=== PATIENT | female | born 1970 | race African-American/Black ===

== ENCOUNTER 2016-08-02 17:44 | Emergency (ER) | payer SELFPAY ==
[~2016-08-02 17:44] MED LIST: Iopamidol 370 76% 100 ML VIAL ONE
[2016-08-02] MEDS ORDERED: Acetaminophen 325 MG TAB ONE (18:42)
[2016-08-02] MEDS ORDERED: Acetaminophen 500 MG TAB ONE (18:42)
[2016-08-02] MEDS ORDERED: Ondansetron HCl/PF 4 MG/2 ML Vial ONE (18:42)
[2016-08-02 18:55] LABS: Anion Gap 15 mmol/L (10-20); BUN (Urea Nitrogen) 10 mg/dL (7.0-18.7); Calc. Creatinine Clearance 0 mL/min (70-130); Calcium 9.6 mg/dL (7.8-10.44); Carbon Dioxide 25 mmol/L (22-29); Chloride 104 mmol/L (98-107); Estimated GFR-MDRD Greater than 90
[2016-08-02 19:08] LABS: Band 3 % (5-11); Hematocrit 39.4 % (36.0-47.0); Mean Platelet Volume 6.7 fL (7.4-10.4); Neutrophil 81 % (42-75); Red Blood Cell (RBC) Count 4.34 mill/uL (4.20-5.40); White Blood Cell (WBC) Count 12.2 thou/uL (4.8-10.8)
[2016-08-02] MEDS ORDERED: Sodium Chloride 0.9% 1,000 ML ONE (19:40)
[2016-08-02] MEDS ORDERED: Clindamycin 300 MG/2 ML VIAL ONE (19:40)
[2016-08-02] MEDS ORDERED: Sodium Chloride 0.9% 100 ML ONE (19:44)
[2016-08-02] MEDS ORDERED: methylPREDNISolone Acetate 40 mg/ml Vial ONE ×2 (20:06)
[2016-08-02] MEDS ORDERED: Lidocaine 1% w/Epinephrine 1:100K 20 ML VIAL ONE (20:06)
[2016-08-02] MEDS ORDERED: Dexamethasone 20 MG/5 ML VIAL ONE (20:13)
--- NOTE | 2016-08-02 21:12 | PICIS ---
[facility] EMERGENCY RECORD TRIAGE (WedAug 02, 2016 17:56 MCBE) TRIAGE NOTES: left ear and left side of throat started hurting last night. no drainage. took advil 2.5 hours ago. (WedAug 02, 2016 17:56 MCBE) PATIENT: NAME: Niki Feliciano, AGE: 45, GENDER: female, : [place] 1970, TIME OF GREET: WedAug 02, 2016 17:45, PREFERRED LANGUAGE: Turkmen, ETHNICITY: Not or , ECODE BILLING MAP: [facility], SSN: [id number], Zip Code: [address], KG WEIGHT: 95.25, PHONE: , , , PERSON ID: [id number], PCP: Kathe Fontana, /Yesenia. ([place] Aug 02, 2016 17:56 MCBE) COMPLAINT: HEADACHE,LT EARACHE,LT SIDE OF FACE & THROAT PAIN. ([place] Aug 02, 2016 17:56 MCBE) ADMISSION: URGENCY: 3 Urgent, ADMISSION SOURCE: Home, TRANSPORT: CAR, BED: WAIT. ([place] Aug 02, 2016 17:56 MCBE) ASSESSMENT: Assessment: throat is noted to be red. patient reports difficulty in swallowing due to pain. (17:59 MCBE) IMMUNIZATIONS: Flu vaccine not up to date, Tetanus immunization up to date, Pneumococcal vaccine not up to date. (17:59 MCBE) SIRS SCORING: Heart Rate 55-109 (0), Temp range 96.8-101.1 (0), respiratory rate 12-24 (0), Mental Status altered: no (0), Infection or Suspected Infection: No. (17:59 MCBE) TRIAGE SCREENING: Patient denies suicidal ideation, Patient denies presence of domestic violence. (17:59 MCBE) PROVIDERS: TRIAGE NURSE: Dina Sheldon. ([place] Aug 02, 2016 17:56 MCBE) VITAL SIGNS: BP 185/97, Pulse 86, Resp 18, Temp 100.3, (Oral), Pain 9, O2 Sat 100, on Room Air, Time 08/02/2016 17:57. (17:57 MCBE) PREVIOUS VISIT ALLERGIES: No Known Drug Allergies. (Karoline Aug 02, 2016 17:56 MCBE) No Known Drug Allergies. (17:59 MCBE) KNOWN ALLERGIES No Known Allergies (Unconfirmed) No Known Drug Allergies CURRENT MEDICATIONS (20:00 KASA) lisinopril-hydrochlorothiazide: TABLET : Strength - 20 mg-12.5 mg : ORAL Patient Dose: 1 tab(s) Oral once a day. VITAL SIGNS VITAL SIGNS: BP: 185/97, Pulse: 86, Resp: 18, Temp: 100.3 (Oral), Pain: 9, O2 sat: 100 on Room Air, Time: 08/02/2016 17:57. (17:57 MCBE) BP: 149/77, Pulse: 77, Resp: 18, O2 sat: 100 on Room Air, Time: 08/02/2016 20:00. (20:00 EPIE) BP: 149/70, Pulse: 83, Time: 08/02/2016 20:31. (20:31 KASA) BP: 159/79, Pulse: 65, Resp: 18, O2 sat: 100 on Room Air, Time: 08/02/2016 21:00. (21:00 KASA) BP: 157/82, Pulse: 78, Resp: 20, Temp: 99.5, Pain: 2, O2 sat: 100 on RA, &a-1R&a+25V*p+0X*d3811S*c152B*c15G*c2P*p-0X&a-25V&a+1RName: Niki Feliciano : F45 MedRec: [id number] AcctNum: [id number] Prepared: Karoline Aug 02, 2016 21:53 by Interface Page [address] [facility] EMERGENCY RECORD Time: 08/02/2016 21:34. (21:34 KASA) NURSING ASSESSMENT: ENT (17:59 MCBE) CONSTITUTIONAL: Complex assessment performed, Patient arrives ambulatory, Gait steady, History obtained from patient, Patient appears comfortable, Patient cooperative, Patient alert, Oriented to person, place and time, Skin warm, Skin dry, Skin normal in color, Mucous membranes pink, Mucous membranes moist, Patient is well-groomed. ENT: Ear assessment findings include ear normal to inspection, Nasal assessment findings include nose normal to inspection, Mouth and throat assessment findings include mouth inspection normal, Uvula, with redness, with mild swelling, Mucous membranes pink, and moist, Able to swallow, Speech normal, no associated fever. RESPIRATORY/CHEST: Breath sounds clear, Respiratory assessment findings include respiratory effort easy, Respirations regular, Conversing normally, Neck and chest exam findings include trachea midline, Chest expansion equal, Chest movement symmetrical, no signs of distress, no retractions noted. NURSING ASSESSMENT: FALL RISK (20:00 KASA) FALL RISK: Use of level of consciousness altering agents with mentation or cognitive changes (3), Change in blood pressure (1), Total score 4. NURSING PROCEDURE: BEDSIDE SIRS TESTING (20:01 KASA) SCORES: Heart Rate 55-109 (0), Temp range 96.8-101.1 (0), respiratory rate 12-24 (0), Mental Status altered: no (0). NURSING PROCEDURE: DISCHARGE NOTE (21:34 KASA) DISCHARGE: Patient discharged to home, ambulating without assistance, family driving, accompanied by other family member, Summary of Care printed/ provided, Discharge instructions given to patient, Simple or moderate discharge teaching performed, . Educated and provided handout regarding diagnosis of: Peritonsillar abscess Follow up with PCP as needed. FOllow up with Dr. Woodall in 2-3 days, (Wednesday in [place] -AM, or in PM)., Prescriptions given and instructions on side effects given, Name of prescription(s) given: Clindamycin, Tramadol. BELONGINGS: Belongings and valuables with patient upon arrival to the Emergency Department include:, Belongings and valuables with patient at time of discharge include:, Belongings remain with patient, Valuables remain with patient. VITAL SIGNS: BP: 157, / 82, Pulse: 78, Resp: 20, Temp: 99.5, Pain: 2, O2 sat: 100, on: RA. NURSING PROCEDURE: IV (18:30 MCBE) PATIENT IDENITIFIER: Patient actively involved in identification process, Patient's identity verified by patient stating name, &a-1R&a+25V*p+0X*g0996G*c152B*c15G*c2P*p-0X&a-25V&a+1RName: Niki Feliciano : F45 MedRec: [id number] AcctNum: [id number] Prepared: Karoline Aug 02, 2016 21:53 by Interface Page [address] [facility] EMERGENCY RECORD Patient's identity verified by patient stating date, Patient's identity verified by hospital ID bracelet. IV SITE 1: IV therapy indicated for hydration, IV therapy indicated for medication administration, IV established, to the left antecubital, using an 18 gauge catheter, in one attempt, IV site prepped with chloraprep, Saline lock established, Flushed with normal saline (mls): 10, Labs drawn at time of placement, labeled in the presence of the patient and sent to lab, Blood cultures drawn at time of placement, labeled in the presence of the patient and sent to lab. NURSING PROCEDURE: LAB DRAW (18:52 MCBE) PATIENT IDENTIFIER: Patient actively involved in identification process, Patient's identity verified by patient stating name, Patient's identity verified by patient stating date, Patient's identity verified by hospital ID bracelet. LAB DRAW: Initial lab draw performed, by venipuncture, from right hand, in two attempts, Blood cultures labeled in the presence of the patient and sent to lab. NOTES: Procedure done by [facility]. NURSING PROCEDURE: NURSE NOTES NURSES NOTES: Notes: Pt resting with eyes closed upon entering the room. Informed that discharge orders are written. Informed we can discharge as soon as her IV fluids are done running. Patient states her throat is feeling much better since the procedure. (21:14 KASA) Notes: On-call ENT Carlitos MONTENEGRO in with patient. Suction set up. Lido with Epi used to numb area. 18g needle used with 5 mL syringe to withdrawn pus from abscess. Pt tolerated well. No complaints at this time. informed patient of the need to follow up at his office on Wednesday. (20:41 KASA) NURSING PROCEDURE: TRANSPORT TO TESTS PATIENT IDENTIFIER: Patient actively involved in identification process, Patient's identity verified by patient stating name, Patient's identity verified by patient stating date, Patient's identity verified by hospital ID bracelet. (18:53 MCBE) TRANSPORT TO TESTS: Transport indicated to facilitate diagnosis, Patient transported to CT scan, ambulatory, Accompanied by x-ray orthodontic lab technician. (18:53 MCBE) FOLLOW-UP: After procedure, patient returned to emergency department. (19:04 KASA) NOTES: Procedure done by [facility]. (18:53 MCBE) ORDER DETAILS Order Name: Basic Metabolic Panel, Status: Active, Time: 18:19 08/02/2016, User: MORRIS, - Ordered for: MD Reilly Joseph, - Entered by: MD Reilly Joseph - Karoline Aug 02, 2016 18:19, - Quantity: 1, &a-1R&a+25V*p+0X*v6862P*c152B*c15G*c2P*p-0X&a-25V&a+1RName: Niki Feliciano : F45 MedRec: [id number] AcctNum: [id number] Prepared: Karoline Aug 02, 2016 21:53 by Interface Page [address] [facility] EMERGENCY RECORD Order Name: CBC with Differential, Status: Active, Time: 18:19 08/02/2016, User: MORRIS, - Ordered for: MD Reilly Joseph, - Entered by: MD Reilly Joseph - Karoline Aug 02, 2016 18:19, - Quantity: 1, Order Name: CT Neck Soft Tissue W WO Con, Status: Active, Time: 18:20 08/02/2016, User: MORRIS, - Ordered for: MD Reilly Joseph, - Entered by: MD Reilly Joseph - Karoline Aug 02, 2016 18:20, - Quantity: 1, Order Name: Culture, Blood, Status: Active, Time: 18:19 08/02/2016, User: MORRIS, - Ordered for: MD Reilly Joseph, - Entered by: MD Reilly Joseph - Karoline Aug 02, 2016 18:19, - Quantity: 1, Order Name: Influenza A&B Ag Screen, Status: Active, Time: 18:01 08/02/2016, User: BENSON, - Ordered for: MD Reilly Joseph, - Entered by: DIANN Caballero Bettye - Sun Aug 02, 2016 18:01, - Quantity: 1, Order Name: Strep Group A Screen, Status: Active, Time: 18:01 08/02/2016, User: BENSON, - Ordered for: MD Reilly Joseph, - Entered by: DIANN Caballero, Mitra Byrne Karoline Aug 02, 2016 18:01, - Quantity: 1. MEDICATION ADMINISTRATION SUMMARY Drug Name: Decadron injection, Dose Ordered: 12 mg, Route: Intramuscular, Status: Given, Time: 20:33 08/02/2016, Drug Name: Depo-Medrol intramuscular, Dose Ordered: 80 mg, Route: Intramuscular, Status: Given, Time: 20:32 08/02/2016, Drug Name: *sodium chloride 0.9 % intravenous, Dose Ordered: 1 L, Route: IV Fluid Infusion, Status: Given, Time: 19:57 08/02/2016, Drug Name: clindamycin injection, Dose Ordered: 600 mg, Route: IV Piggy Back, Status: Given, Time: 19:56 08/02/2016, Drug Name: Tylenol Extra Strength, Dose Ordered: 1 g, Route: Oral, Status: Given, Time: 18:51 08/02/2016, Drug Name: morphine injection, Dose Ordered: 4 mg, Route: IV Push, Status: Given, Time: 18:50 08/02/2016, Drug Name: ondansetron HCl intravenous, Dose Ordered: 4 mg, Route: IV Push, Status: Given, Time: 18:50 08/02/2016, *Additional information available in notes, Detailed record available in Medication Service section. MEDICATION SERVICE clindamycin injection: Order: clindamycin injection (clindamycin phosphate) - Dose: 600 mg : IV Piggy Back Schedule: Now Ordered by: Arjun Reilly MD Entered by: MD Karoline Reed Aug 02, 2016 19:38 , &a-1R&a+25V*p+0X*d7026D*c152B*c15G*c2P*p-0X&a-25V&a+1RName: Niki Feliciano : F45 MedRec: [id number] AcctNum: [id number] Prepared: Karoline Aug 02, 2016 21:53 by Interface Page [address] [facility] EMERGENCY RECORD Acknowledged by: DIANN Munoz Aug 02, 2016 19:44 Documented as given by: DIANN South Aug 02, 2016 19:56 Patient, Medication, Dose, Route and Time verified prior to administration. Amount given: 600 mg, IV SITE #1 IVPB or drip, concurrent infusion, IVPB mixed in: 100ml, Fluid: 0.9NS, via primary tubing, on an IV pump, at 200 ml/hr, Catheter placement confirmed via flush prior to administration, IV site without signs or symptoms of infiltration during medication administration, No swelling during administration, No drainage during administration, IV flushed after administration, Correct patient, time, route, dose and medication confirmed prior to administration, Patient advised of actions and side-effects prior to administration, Allergies confirmed and medications reviewed prior to administration, Patient in position of comfort, Side rails up, Cart in lowest position, Family at bedside, Compatibility and rate confirmed with [facility]ist[facility]namaria [facility]. : Follow Up : _IV SITE #1:_, Medication infusion discontinued, on WedAug 02, 2016 20:25, 30 minutes, ., Total amount infused: 100 ml, Advised not to ambulate without assistance, Patient in position of comfort, Side rails up, Cart in lowest position, Family at bedside. (21:16 KASA) Decadron injection: Order: Decadron injection (dexamethasone sod phosphate) - Dose: 12 mg : Intramuscular Schedule: Now Ordered by: Arjun Reilly MD Entered by: Arjun Reilly MD [place] Aug 02, 2016 20:05 , Acknowledged by: Padmini Gaytan RN [place] Aug 02, 2016 20:14 Documented as given by: Martine Galvez RN [place] Aug 02, 2016 20:33 Patient, Medication, Dose, Route and Time verified prior to administration. IM medication, Amount given: 12 mg, Medication administered to left buttock, Correct patient, time, route, dose and medication confirmed prior to administration, Patient advised of actions and side-effects prior to administration, Allergies confirmed and medications reviewed prior to administration, Patient in position of comfort, Side rails up, Cart in lowest position, Family at bedside. : Follow Up : No signs or symptoms of allergic reaction noted, Site inspection shows, No swelling at administration site, No drainage at administration site, No bleeding at site, No bruising noted at site, Advised not to ambulate without assistance, Patient in position of comfort, Side rails up, Cart in lowest position, Family at bedside. (21:17 KASA) Depo-Medrol intramuscular: Order: Depo-Medrol intramuscular (methylprednisolone acetate) - Dose: 80 mg : Intramuscular Schedule: Now Ordered by: Arjun Reilly MD Entered by: MD Karoline Reed Aug 02, 2016 20:04 , Acknowledged by: DIANN South Aug 02, 2016 20:11 Documented as given by: DIANN South Aug 02, 2016 20:32 Patient, Medication, Dose, Route and Time verified prior to administration. &a-1R&a+25V*p+0X*k5897Z*c152B*c15G*c2P*p-0X&a-25V&a+1RName: Niki Feliciano : F45 MedRec: [id number] AcctNum: [id number] Prepared: Karoline Aug 02, 2016 21:53 by Interface Page [address] [facility] EMERGENCY RECORD IM medication, Amount given: 80 mg, Medication administered to right buttock, Correct patient, time, route, dose and medication confirmed prior to administration, Patient advised of actions and side-effects prior to administration, Allergies confirmed and medications reviewed prior to administration, Patient in position of comfort, Side rails up, Cart in lowest position, Family at bedside. : Follow Up : No signs or symptoms of allergic reaction noted, Site inspection shows, No swelling at administration site, No drainage at administration site, No bleeding at site, No bruising noted at site, Advised not to ambulate without assistance, Patient in position of comfort, Side rails up, Cart in lowest position, Family at bedside. (21:17 KASA) morphine injection: Order: morphine injection (morphine sulfate) - Dose: 4 mg : IV Push Schedule: Now Ordered by: Arjun Reilly MD Entered by: MD Karoline Reed Aug 02, 2016 18:17 , Acknowledged by: iDna Ramey Aug 02, 2016 18:18 Documented as given by: Dina Ramey Aug 02, 2016 18:50 Patient, Medication, Dose, Route and Time verified prior to administration. Amount given: 4mg, IV SITE #1 IVP, subsequent different medication, Slowly, Awake and alert- acceptable, Connections checked prior to administration, Line traced prior to administration, Catheter placement confirmed via flush prior to administration, IV site without signs or symptoms of infiltration during medication administration, No swelling during administration, No drainage during administration, IV flushed after administration, Correct patient, time, route, dose and medication confirmed prior to administration, Patient advised of actions and side-effects prior to administration, Allergies confirmed and medications reviewed prior to administration, Patient in position of comfort, Side rails up, Cart in lowest position, Call light in reach. ondansetron HCl intravenous: Order: ondansetron HCl intravenous (ondansetron HCl) - Dose: 4 mg : IV Push Schedule: Now Ordered by: Arjun Reilly MD Entered by: MD Karoline Reed Aug 02, 2016 18:18 , Acknowledged by: Dina Ramey Aug 02, 2016 18:18 Documented as given by: Dina Ramey Aug 02, 2016 18:50 Patient, Medication, Dose, Route and Time verified prior to administration. Amount given: 4mg, IV SITE #1 IVP, initial medication, Slowly, Awake and alert- acceptable, Connections checked prior to administration, Line traced prior to administration, Catheter placement confirmed via flush prior to administration, IV site without signs or symptoms of infiltration during medication administration, No swelling during administration, No drainage during administration, IV flushed after administration, Correct patient, time, route, dose and medication confirmed prior to administration, Patient advised of actions and side-effects prior to administration, Allergies confirmed and &a-1R&a+25V*p+0X*o7492D*c152B*c15G*c2P*p-0X&a-25V&a+1RName: Niki Feliciano : F45 MedRec: [id number] AcctNum: [id number] Prepared: Karoline Aug 02, 2016 21:53 by Interface Page [address] [facility] EMERGENCY RECORD medications reviewed prior to administration, Patient in position of comfort, Side rails up, Cart in lowest position, Call light in reach. sodium chloride 0.9 % intravenous: Order: sodium chloride 0.9 % intravenous (0.9 % sodium chloride) - Dose: 1 L : IV Fluid Infusion Schedule: Bolus Notes: (Bolus) Ordered by: Arjun Reilly MD Entered by: MD Karoline Reed Aug 02, 2016 19:38 , Acknowledged by: DIANN Munoz Aug 02, 2016 19:44 Documented as given by: DIANN South Aug 02, 2016 19:57 Patient, Medication, Dose, Route and Time verified prior to administration. Amount given: 1000 ml, IV SITE #1 IV fluids established for hydration, IV SITE #1 into right antecubital, IV SITE #1 1st bag hung, amount 1 Liter hung, IV SITE #1 bolus of 1000 ml established, via primary tubing, via pump tubing, Catheter placement confirmed via flush prior to administration, IV site without signs or symptoms of infiltration during medication administration, No swelling during administration, No drainage during administration, IV flushed after administration, Correct patient, time, route, dose and medication confirmed prior to administration, Patient advised of actions and side-effects prior to administration, Allergies confirmed and medications reviewed prior to administration, Patient in position of comfort, Side rails up, Cart in lowest position, Family at bedside. : Follow Up : No signs or symptoms of allergic reaction noted, _IV SITE #1:_, IV fluid infusion discontinued, on [place] Aug 02, 2016 21:20, Total fluid hydration time IV site 1 1 hour, 25 minutes, ., Total amount infused: 1000 mL, IV Discontinued with catheter intact, Advised not to ambulate without assistance, Patient in position of comfort, Side rails up, Cart in lowest position, Family at bedside. (21:20 KASA) Tylenol Extra Strength: Order: Tylenol Extra Strength (acetaminophen) - Dose: 1 g : Oral Schedule: Now Ordered by: Arjun Reilly MD Entered by: Arjun Reilly MD [place] Aug 02, 2016 18:18 , Acknowledged by: Dina Ramey Aug 02, 2016 18:19 Documented as given by: Dina Ramey Aug 02, 2016 18:51 Patient, Medication, Dose, Route and Time verified prior to administration. Amount given: 1g, Site: Medication administered P.O., Patient appears Awake and alert- acceptable, Correct patient, time, route, dose and medication confirmed prior to administration, Patient advised of actions and side-effects prior to administration, Allergies confirmed and medications reviewed prior to administration, Patient in position of comfort, Side rails up, Cart in lowest position, Call light in reach. HPI SORE THROAT (19:31 JROB) CHIEF COMPLAINT: Patient presents for evaluation of sore &a-1R&a+25V*p+0X*m7661Z*c152B*c15G*c2P*p-0X&a-25V&a+1RName: Niki Feliciano : F45 MedRec: [id number] AcctNum: [id number] Prepared: Karoline Aug 02, 2016 21:53 by Interface Page [address] [facility] EMERGENCY RECORD throat, Patient presents for evaluation of Left facial pain. HISTORIAN: History provided by patient, 45 year old female presents with left sided throat pain, facial pain that started yesterday, much worse today. +painful swallowing, +voice change. LOCATION: Radiation to, the left ear. SEVERITY: Current severity of pain rated as 9/10. TIME COURSE: Gradual onset of symptoms, Symptoms are worsening. ASSOCIATED WITH: Associated with fever, No associated chills, No associated cough, Associated with dysphagia, No associated nasal discharge, No associated recent tooth extraction, No associated shortness of breath, No associated trauma, No associated upper respiratory infection, No associated vomiting. EXACERBATED BY: Patient's condition exacerbated by swallowing. RELIEVED BY: Patient's condition relieved by nothing. ROS (19:33 JROB) CONSTITUTIONAL: Historian denies chills, reports fever. ENT: Historian reports sore throat. CARDIOVASCULAR: Historian denies syncope. RESPIRATORY: Historian denies cough, denies shortness of breath. GI: Historian denies vomiting. MUSCULOSKELETAL: Historian reports myalgias. SKIN: Historian denies rash. NEUROLOGIC: Historian denies headache. HEMO/LYMPHATIC: Historian denies abnormal blood clotting. ALLERGIC/IMMUNOLOGIC: Historian denies frequent infections. NOTES: All systems reviewed, negative except as described above. PAST MEDICAL HISTORY MEDICAL HISTORY: Past medical history includes history of hypertension,. (17:59 MCBE) FEMALE SURGICAL HISTORY: Surgical history of hysterectomy. (17:59 MCBE) PSYCHIATRIC HISTORY: No previous psychiatric history. (17:59 MCBE) SOCIAL HISTORY: Patient drinks socially, once a month, Patient denies drug use, Patient currently uses tobacco, smokes cigarettes, daily, Patient smokes 1/2 packs per day, 5-6 cigs/day. (17:59 MCBE) FAMILY HISTORY: Maternal history of diabetes, Maternal history of hypertension, Maternal history of malignancy. (17:59 MCBE) NOTES: Nursing records reviewed, Agree with nursing records, Medication list reviewed. (19:35 JROB) PHYSICAL EXAM (19:33 JROB) CONSTITUTIONAL: Vital Signs Reviewed, Patient febrile, temperature of 100.3, Pulse normal, Blood pressure, hypertensive, Patient alert and oriented to &a-1R&a+25V*p+0X*r3488V*c152B*c15G*c2P*p-0X&a-25V&a+1RName: Niki Feliciano : F45 MedRec: [id number] AcctNum: [id number] Prepared: Karoline Aug 02, 2016 21:53 by Interface Page [address] [facility] EMERGENCY RECORD person, place and time, mildly ill appearing. HEAD: Head exam normal, Head exam included findings of head atraumatic. EYES: Eye exam normal, Pupils equally round and reactive to light, Extraocular muscles intact. ENT: Pharynx, injected bilaterally, with swelling on the left, asymmetrical left greater than right, Uvula, deviated to the right, Tonsils, enlarged left greater than right. NECK: Cervical adenopathy, multiple nodes, left submandibular. RESPIRATORY CHEST: Breath sounds clear, No wheezing, No rales, No rhonchi. CARDIOVASCULAR: Cardiovascular assessment normal, Cardiovascular exam included findings of heart rate regular rate and rhythm, Heart sounds normal. ABDOMEN FEMALE: Abdominal exam included findings of abdomen nontender, no distension, no peritoneal signs. BACK: Back exam normal, Back exam included findings of normal inspection. UPPER EXTREMITY: Upper extremity exam normal, Upper extremity exam included findings of inspection normal, Motor strength normal, Sensation intact. LOWER EXTREMITY: Lower extremity exam normal, Lower extremity exam included findings of inspection normal, Motor strength normal, Sensation intact. NEURO: Neuro exam findings include patient oriented to person, place and time, no focal motor deficits, no focal sensory deficits. SKIN: Skin exam included findings of skin warm, dry, no rash. LAB INTERPRETATION (20:54 JROB) INTERPRETATION: I reviewed the lab results, CBC abnormal, White blood cell count elevated, Left shift, Chemistry abnormal, Glucose elevated, Chemistry otherwise normal, Rapid strep negative, Influenza negative. EVENTS TRANSFER: Triage to Emergency Waiting. (Karoline Aug 02, 2016 17:56 MCBE) Emergency Waiting to Emergency Room -02. (17:59 MCBE) Removed from Emergency Emergency Room -02. (21:43 KASA) O2SAT INTERPRETATION (19:35 JROB) O2SAT: Single pulse oximetry, Oxygen saturation 100%, on room air, Oxygen saturation interpretation: Normal, No intervention required. 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 Plan &a-1R&a+25V*p+0X*[id number]*c152B*c15G*c2P*p-0X&a-25V&a+1RName: Niki Feliciano : F45 MedRec: [id number] AcctNum: [id number] Prepared: Karoline Aug 02, 2016 21:53 by Interface Page [address] [facility] EMERGENCY RECORD for transfer to facility with ENT. Will contact transfer center. Ordered Clindamycin. (19:35 JROB) Discussed with Dr. Woodall, ENT at 7:55pm. He will see the patient in the ER here in [place]. He requested Depo-Medrol 80mg IM, Decadron 12mg IM, and to have Lidocaine with Epi at the bedside. (20:06 JROB) Patient was seen by Dr. Woodall in the ER, who performed I+D at the bedside. Patient can be dc'd home with Clindamycin to follow up in clinic on Wednesday. (20:47 JROB) PATIENT STATUS: Patient has improved since arrival to emergency department. (20:47 JROB) PATIENT PLAN: The patient will be discharged, The patient will follow up with primary care physician. (20:47 JROB) DATA REVIEWED: Lab data reviewed, Xray data reviewed. (20:47 JROB) PROBLEM LIST No recorded problems DIAGNOSIS DIFFERENTIAL: Based on history, exam and ancillary studies if indicated: Impression: viral pharyngitis, Impression: group A stretococcal pharyngitis, Impression: pharyngitis, Impression: peritonsillar abscess, Impression: retropharyngeal abscess, Diagnoses considered are not limited to those documented above. (20:50 JROB) FINAL: PRIMARY: PERITONSILLAR ABSCESS. (20:51 JROB) DISPOSITION PATIENT: Disposition Type: Discharge, Disposition: *Discharge Home. (20:51 JROB) Patient left the department. (21:43 KASA) INSTRUCTION (20:52 JROB) DISCHARGE: PERITONSILLAR ABSCESS. PHARMACY: clindamycin HCl, traMADol. FOLLOWUP: [facility], /[facility], [address] [address], , MD Jose C, Francis, Otolaryngology, [address] [facility] [address], , Follow up with Primary Care Physician as needed, Follow up with Specialist in 2-3 days. SPECIAL: Follow-up with Dr. Woodall on Wednesday. We hope you feel better soon! We are always happy to take care of you and your family! Return to the ER immediately for any new, concerning, or worsening symptoms. PRESCRIPTION clindamycin HCl: CAPSULE : 150 mg : ORAL : Quantity: 3 Unit: cap(s) Route: ORAL Schedule: 3 times a day Dispense: 90 Unit: cap(s) May substitute. Refills: No Refills . (20:49 JROB) &a-1R&a+25V*p+0X*[id number]*c152B*c15G*c2P*p-0X&a-25V&a+1RName: Niki Feliciano : F45 MedRec: [id number] AcctNum: [id number] Prepared: Karoline Aug 02, 2016 21:53 by Interface Page [address] [facility] EMERGENCY RECORD NOTES: No Refills. (20:49 JROB) traMADol: TABLET : 50 mg : ORAL : Quantity: 1 Unit: tab(s) Route: ORAL Schedule: every 6 hours PRN Dispense: 20 Unit: tab(s) May substitute. Refills: No Refills . (20:50 JROB) NOTES: No Refills. (20:50 JROB) ADMIN (20:55 JROB) DIGITAL SIGNATURE: MD Tommie, Arjun. RESULTS MICROBIOLOGY: Strep Group A Screen: [id number] Collection DT: Karoline Aug 02, 2016 18:05, See comment below , @ ER ROOM#: ER-02 Source: Throat Spec Desc: PENDING, Strep A Negative CDC recommends , confirmation by , culture on all , negative , Strep negative line 1 Group A , Streptococcus rapid , screens. Please , order , Strep negative line 2 a throat culture if , clinically , indicated. , Rapid Strep Screen:Throat Negative . (18:20 JROB) Influenza A&B Ag Screen: [id number] Collection DT: Karoline Aug 02, 2016 18:14, See comment below , @ ER ROOM#: [id number] Source: Nasal swab Spec Desc: , Influenza A Antigen: NEGATIVE for the , presence of , INFLUENZA A Antigen , Influenza B Antigen: NEGATIVE for the , presence of , INFLUENZA B Antigen , The rapid Flu A&B test can distinguish between influenza A , Influenza A&B Ag Screen See comment below , and B viruses, but it does not differentiate influenza , Influenza A&B Ag Screen See comment below , subtypes. , Influenza A&B Ag Screen See comment below , Influenza A&B Ag Screen See comment below , Influenza A&B Ag Screen See comment below , Influenza A&B Ag Screen See comment below , characteristics of this device with human specimens infected , Influenza A&B Ag Screen See comment below , with the 2008 H1N1 influenza virus have not been , Influenza A&B Ag Screen See comment below , established. For example: &a-1R&a+25V*p+0X*[id number]*c152B*c15G*c2P*p-0X&a-25V&a+1RName: Niki Feliciano : F45 MedRec: [id number] AcctNum: [id number] Prepared: Karoline Aug 02, 2016 21:53 by Interface Page [address] [facility] EMERGENCY RECORD this test cannot distinguish , Influenza A&B Ag Screen See comment below , influenza infections caused by novel H1N1 influenza A , Influenza A&B Ag Screen See comment below , viruses versus seasonal influenza A viruses. , Influenza A&B Ag Screen See comment below , , Influenza A&B Ag Screen See comment below , A negative result does not exclude influenza virus , Influenza A&B Ag Screen See comment below , infection; therefore, if more conclusive testing is desired, , Influenza A&B Ag Screen See comment below , follow up confirmatory testing is warranted., Influenza A&B Ag Screen See comment below . (18:55 JROB) LABORATORY: Basic Metabolic Panel Collection DT: Karoline Aug 02, 2016 18:37, Sodium 140 mmol/L, Range (136-145), Potassium 3.5 mmol/L, Range (3.5-5.1), Chloride 104 mmol/L, Range (98-107), Carbon Dioxide 25 mmol/L, Range (22-29), Anion Gap 15 mmol/L, Range (10-20), BUN (Urea Nitrogen) 10 mg/dL, Range (7.0-18.7), Creatinine 0.81 mg/dL, Range (0.6-1.1), Estimated GFR-MDRD Greater than 90 , Reference Range for Estimated GFR: Greater than 90, mL/min/1.73 m2 NOTE: The MDRD equation has not been validated for use, with the elderly (over 70 years of age), women, patients with, serious comorbid condition or persons with extremes of body size, muscle, mass, or nutritional status. , *Glucose 161 - H mg/dL, Range (70-105), Calcium 9.6 mg/dL, Range (7.8-10.44). (19:04 JROB) CBC with Differential Collection DT: Karoline Aug 02, 2016 18:37, *White Blood Cell (WBC) Count 12.2 - H thou/uL, Range (4.8-10.8), Red Blood Cell (RBC) Count 4.34 mill/uL, Range (4.20-5.40), Hemoglobin 12.6 g/dL, Range (12.0-16.0), Hematocrit 39.4 %, Range (36.0-47.0), Mean Corpuscular Volume 90.7 fl, Range (81.0-99.0), Mean Corpuscular Hemoglobin 29.1 pg, Range (27.0-31.0), Mean Corpuscular HGB CONC 32.1 g/dL, Range (32.0-36.0), RBC Distribution Width 12.9 %, Range (11.5-14.5), Platelet Count 375 thou/uL, Range (130-400), *Mean Platelet Volume 6.7 - L fL, Range (7.4-10.4), *Neutrophil 81 - H %, Range (42-75), *Band 3 - L %, Range (5-11), *Lymphocytes 10 - L %, Range (21-51), Monocytes 4 %, Range (0-10), Eosinophils 1 %, Range (0-10), Basophils 1 %, Range (0-2), &a-1R&a+25V*p+0X*g6466N*c152B*c15G*c2P*p-0X&a-25V&a+1RName: Niki Feliciano: 5 MedRec: [id number] AcctNum: [id number] Prepared: Karoline Aug 02, 2016 21:53 by Interface Page [address] [facility] EMERGENCY RECORD PLT Morphology Comment Appears Adequate , RBC Morphology Normal . (19:15 JROB) Ellis: ADELA=DIANN Gaytan, Padmini JROB=MD Tommie, Arjun BETANCOURT=DIANN Galvez, Martine BOWERBE=Dina Sheldon &a-1R&a+25V*p+0X*[id number]*c152B*c15G*c2P*p-0X&a-25V&a+1RName: Niki Feliciano: 5 MedRec: [id number] AcctNum: [id number] Prepared: Karoline Aug 02, 2016 21:53 by Interface Page 13 of 13 pMD MTDD
--- NOTE | 2016-08-02 22:30 | CT ---
NECK CT WITH CONTRAST: Date: 08-02-16 Comparison: None. History: Left ear pain, left sided throat pain. Technique: Serial axial CT imaging at 2.5 mm intervals from the thoracic inlet through the skull ba se with IV contrast. Coronal and sagittal reformatted imaging obtained. FINDINGS: The imaged brain parenchyma is unremarkable. The imaged paranasal sinuses and mastoid air cells are well aerated. Incidental note is made of a prominent sigmoid sinus on the right with calvarial bone thinning appro aching dehiscense on image 77, of uncertain clinical significance. The imaged lung apices are unremarkable. The retro, antral and parapharyngeal fat appears grossly unremarkable bilaterally. The submandibular glands and parotid glands are unremarkable. Streak artifact from dental amalgam limits assessment of the oral cavity and the posterior oropharyn geal mucosa. There is marked asymmetric enlargement of the left tonsillar pillar. This results in significant narrowing of the oropharyngeal airway, particularly at the axial level of the body of th e oral tongue. There is a rim calcified irregular fluid collection within the markedly large palati ne tonsil, evidence of peritonsillar abscess formation, best seen on sagittal image 77 and axial randi ges 48 through 59, measuring at least 1.9 cm in AP dimension, 3.4 cm in craniocaudal dimension, and 2.0 cm in transverse dimension. Surrounding edematous change extends inferiorly to the axial level of the C2-3 interspace, involving the left peritonsillar soft tissues. The epiglottis and preepiglottic fat, the hyoid bone, the thyroid cartilage and the cricoid cartilag e are unremarkable. There is a complex hypodense nodule in the right lobe of the thyroid gland measuring approximately 1 .4 cm, for which follow up thyroid ultrasound is advised. Bilateral level 2A lymphadenopathy noted measuring 1.3 cm on the left and 1.1 cm on the right. Ther e is posterior triangular adenopathy present on the left with numerous prominent nodes, measuring up to 1.0 cm in short axis dimension. The vascular structures demonstrate a medialized internal carotid artery on the right. Vascular str uctures appear patent. No acute osseous abnormality. IMPRESSION: 1. Rim enhancing hypodense lesion within the left palatine tonsil, most consistent with a prominent left tonsillar abscess. This results in prominent narrowing of the oropharyngeal airway. Malignan cy cannot be excluded in the proper clinical setting. 2. Thyroid nodule on the right for which follow up thyroid ultrasound advised. 3. Dr. Reilly made aware, 7:25 p.m., 08-02-16. POS: [facility]
--- NOTE | 2016-08-04 11:36 | CON ---
DATE OF CONSULTATION: 08/02/2016 REASON FOR CONSULTATION: Peritonsillar abscess. HISTORY OF PRESENT ILLNESS: Ms. Feliciano is a 45-year-old female with a past medical history of hyperte nsion, who presented to the [facility] ER with 1 day of left throat pain and swelling with left ear pa in. This has never happened to her before. She had otherwise been in her normal state of health un til recently. She is rapidly worsened over the preceding 24 hours, so she presented to the ER. PAST MEDICAL HISTORY: Hypertension. MEDICATIONS: Lisinopril/hydrochlorothiazide. ALLERGIES: She has no known drug allergies. PAST SURGICAL HISTORY: She had a hysterectomy. SOCIAL HISTORY: She is a smoker. She drinks socially once a month. FAMILY HISTORY: Noncontributory. REVIEW OF SYSTEMS: Reviewed from her ER note and was found to be correct. PHYSICAL EXAMINATION: VITAL SIGNS: Temperature was 100.3, blood pressure 185/97, pulse 86, saturating 100% on room air. GENERAL: She is awake, alert, and cooperative. HEENT: Head and face reveals no concerning lesions. She is atraumatic. External ears were within normal limits. Tympanic membranes bilaterally within normal limits. Nose: Septum is midline. Ora l cavity and oropharynx: Moist mucous membranes. There is swelling and erythema of the left palati ne tonsil with deviation of the uvula to the right. There is swelling of the left tonsillar pillar with erythema especially inferiorly. The tongue is enlarged relatively large for her mouth. NECK: There is no significant adenopathy in the left and the mandible is distinct. LABORATORY AND X-RAY FINDINGS: CT scan of the neck with contrast was reviewed, which shows an infer iorly based left peritonsillar abscess. PROCEDURE: Incision and drainage left peritonsillar abscess. Verbal consent was obtained, the left tonsillar pillar was infiltrated with 1% lidocaine with epinephrine. We used a 12 blade to incise the tonsillar pillar superiorly. The peritonsillar space was probed with a Q-tip without purulence being expressed. We then introduced an 18 gauge needle into the inferior pole and hold off 1-1/2 mL of purulent material. The patient tolerated the procedure well. IMPRESSION: Left peritonsillar abscess. RECOMMENDATIONS: 1. Recommend short and long-acting IM steroids. 2. Continue clindamycin orally. 3. The patient is to follow up with me in 2 days for reexamination. She should call for an appoint ment. She was given my contact. Thank you very much for the consult. Please call with questions.
== END 2016-08-02 21:34 | disposition home or self-care (01) ==
LOC: NAV ERS 17:44
DX: J36 Peritonsillar abscess (principal); I10 Essential (primary) hypertension; F17.210 Nicotine dependence, cigarettes, uncomplicated; Z90.710 Acquired absence of both cervix and uterus; Z79.899 Other long term (current) drug therapy
CPT/HCPCS: 70492; 80048; 85025; 87040; 87430; 96361; 96365; 96372; 96375; J1030; J1100; J2001; J2270; J2405; J3490; J7050

== ENCOUNTER 2017-02-02 20:48 | Emergency (ER) | payer OTHER, SELFPAY ==
[2017-02-02] MEDS ORDERED: Ketorolac Tromethamine 30 MG/ML VIAL ONE (21:53)
[2017-02-02] MEDS ORDERED: Ondansetron HCl/PF 4 MG/2 ML Vial ONE (21:54)
[2017-02-02] MEDS ORDERED: Sodium Chloride 0.9% 0 ML ONE (21:54)
[2017-02-02] MEDS ORDERED: cefTRIAXone\\ROCEPHIN 2 GM VIAL ONE (21:54)
[2017-02-02] MEDS ORDERED: methylPREDNISolone Sod Succ/PF 125 MG/2 ML VIAL ONE (21:54)
[2017-02-02] MEDS ORDERED: cefTRIAXone\\ROCEPHIN 1 GM VIAL ONE (21:58)
[2017-02-02 22:08] LABS: #Basophils 0.2 thou/uL (0.0-0.2); #Eosinphils 0.1 thou/uL (0.0-0.7); #Lymphocytes 3.4 thou/uL (1.20-3.40); #Monocytes 0.8 thou/uL (0.11-0.59); #Neutrophils 7.8 thou/uL (1.40-6.50); %Basophils 1.7 % (0.0-1.0); %Eosinophils 0.8 % (0.0-10.0); %Lymphocytes 27.7 % (21.0-51.0); %Monocytes 6.3 % (0.0-10.0); %Neutrophils 63.4 % (42.0-75.0); Hemoglobin 12.6 g/dL (12.0-16.0); Mean Corpuscular HGB CONC 31.9 g/dL (32.0-36.0); Mean Corpuscular Hemoglobin 27.7 pg (27.0-31.0); Mean Corpuscular Volume 86.8 fl (81.0-99.0); Mean Platelet Volume 6.6 fL (7.4-10.4); Platelet Count 353 thou/uL (130-400); RBC Distribution Width 13.3 % (11.5-14.5); Red Blood Cell (RBC) Count 4.53 mill/uL (4.20-5.40); White Blood Cell (WBC) Count 12.3 thou/uL (4.8-10.8)
[2017-02-02 22:19] LABS: Anion Gap 16 mmol/L (10-20); BUN (Urea Nitrogen) 12 mg/dL (7.0-18.7); Calc. Creatinine Clearance 0 mL/min (70-130); Calcium 9.6 mg/dL (7.8-10.44); Carbon Dioxide 25 mmol/L (22-29); Chloride 103 mmol/L (98-107); Estimated GFR-MDRD Greater than 90; Glucose 101 mg/dL (70-105); Potassium 3.6 mmol/L (3.5-5.1); Sodium 140 mmol/L (136-145)
[2017-02-02] MEDS ORDERED: Sodium Chloride 0.9% 1,000 ML ONE ×2 (22:44→23:12)
== END 2017-02-03 01:20 | disposition home or self-care (01) ==
LOC: NAV ERS 20:48
DX: J36 Peritonsillar abscess (principal); I10 Essential (primary) hypertension; F17.210 Nicotine dependence, cigarettes, uncomplicated; Z79.899 Other long term (current) drug therapy
CPT/HCPCS: 80048; 85025; 87081; 87430; 96361; 96365; 96375; J0696; J1885; J2270; J2405; J2930; J7050

== ENCOUNTER 2017-07-24 04:38 | Emergency (ER) | payer OTHER ==
[2017-07-24] MEDS ORDERED: Acetaminophen 500 MG TAB ONE (04:52)
[2017-07-24] MEDS ORDERED: Ibuprofen 800 MG TAB ONE (05:22)
--- NOTE | 2017-07-24 09:00 | RAD ---
2 VIEWS CHEST: Date: 07/24/17 HISTORY: Cough. FINDINGS: PA and lateral views of chest obtained. There are areas of subtle mid lung patchy density, possibly representing a small area of right mid gray ng pneumonia, not previous on the previous comparison exam. The left lung is well aerated. IMPRESSION: Area of right perihilar patchy density concerning for an area of pneumonia. POS: [facility]
== END 2017-07-24 06:01 | disposition home or self-care (01) ==
LOC: NAV ERS 04:38
DX: J18.9 Pneumonia, unspecified organism (principal); I10 Essential (primary) hypertension; F17.210 Nicotine dependence, cigarettes, uncomplicated; Z79.899 Other long term (current) drug therapy
CPT/HCPCS: 71020

== ENCOUNTER 2017-08-09 12:53 | Emergency (ER) | payer OTHER | END 2017-08-09 13:15 | disposition home or self-care (01) | LOC: NAV ERS 12:53 | DX: H10.9 Unspecified conjunctivitis (principal); I10 Essential (primary) hypertension; F17.210 Nicotine dependence, cigarettes, uncomplicated; Z79.899 Other long term (current) drug therapy | CPT/HCPCS: 99282 ==

== ENCOUNTER 2017-10-07 12:32 | Emergency (ER) | payer OTHER, SELFPAY ==
[2017-10-07] MEDS ORDERED: Ibuprofen 200 MG TAB ONE (13:13)
[2017-10-07] MEDS ORDERED: cloNIDine 0.1 MG TAB ONE (13:35)
--- NOTE | 2017-10-07 13:51 | RAD ---
RIGHT SHOULDER THREE VIEWS: History: Right arm injury. FINDINGS: Fragmentation posterior to the glenoid is similar in appearance to the chest radiograph from 10-25-15. Acromioclavicular and glenohumeral alignment are maintained. There is a moderate degree of osteophyt osis. IMPRESSION: Osteoarthritis. Chronic type findings are stable. POS: [facility]
== END 2017-10-07 14:10 | disposition home or self-care (01) ==
LOC: NAV ERS 12:32
DX: S46.911A Strain of unspecified muscle, fascia and tendon at shoulder and upper arm level, right arm, initial encounter (principal); F17.210 Nicotine dependence, cigarettes, uncomplicated; Z79.899 Other long term (current) drug therapy; W20.8XXA Other cause of strike by thrown, projected or falling object, initial encounter
CPT/HCPCS: 99001

== ENCOUNTER 2017-12-06 14:06 | Emergency (ER) | payer SELFPAY ==
[2017-12-06 15:41] LABS: ALT (SGPT) 16 U/L (8-55); AST (SGOT) 19 U/L (5-34); Albumin 4.1 g/dL (3.5-5.0); Alkaline Phosphatase 62 U/L (40-150); Anion Gap 13 mmol/L (10-20); BUN (Urea Nitrogen) 7 mg/dL (7.0-18.7); Bilirubin, Total 0.3 mg/dL (0.2-1.2); Calc. Creatinine Clearance 0 mL/min (70-130); Calcium 9.3 mg/dL (7.8-10.44); Carbon Dioxide 26 mmol/L (22-29); Chloride 102 mmol/L (98-107); Estimated GFR-MDRD Greater than 90; Globulin 3.2 g/dL (2.4-3.5); Glucose 77 mg/dL (70-105); Potassium 3.8 mmol/L (3.5-5.1); Protein, Total 7.3 g/dL (6.0-8.3); Sodium 137 mmol/L (136-145)
[2017-12-06 15:43] LABS: #Basophils 0.1 thou/uL (0.0-0.2); #Eosinphils 0.1 thou/uL (0.0-0.7); #Monocytes 0.3 thou/uL (0.11-0.59); #Neutrophils 3.2 thou/uL (1.40-6.50); %Basophils 1.6 % (0.0-1.0); %Eosinophils 0.9 % (0.0-10.0); %Lymphocytes 35.3 % (21.0-51.0); %Monocytes 5.8 % (0.0-10.0); %Neutrophils 56.4 % (42.0-75.0); Hemoglobin 12.9 g/dL (12.0-16.0); Mean Corpuscular HGB CONC 30.9 g/dL (32.0-36.0); Mean Corpuscular Hemoglobin 27.2 pg (27.0-31.0); Mean Platelet Volume 6.5 fL (7.4-10.4); Platelet Count 363 thou/uL (130-400); Red Blood Cell (RBC) Count 4.74 mill/uL (4.20-5.40); Troponin I Less than 0.010 ng/mL (< 0.028); White Blood Cell (WBC) Count 5.7 thou/uL (4.8-10.8)
[2017-12-06 16:00] LABS: CKMB 2.5 ng/mL (0-6.6)
== END 2017-12-06 16:00 | disposition home or self-care (01) ==
LOC: NAV ERS 14:06
DX: I10 Essential (primary) hypertension (principal); F17.210 Nicotine dependence, cigarettes, uncomplicated; Z79.899 Other long term (current) drug therapy
CPT/HCPCS: 36415; 80053; 82553; 84484; 85025; 93005